=== PATIENT | female | born 1970 | race Caucasian/White ===

== ENCOUNTER 2016-08-15 08:34 | Inpatient (IN) | payer BC ==
--- NOTE | ~2016-08-15 | DS ---
Unit #: [id number] #: [id number] Patient: MENDY GARCIA [id number] [address] [place], [place] [address] [id number] MR#: [id number] NAME: MENDY GARCIA ROOM: [facility] Age: 46 Sex: F Admission Date: 08/15/2016 : 1970 Discharge Date: 08/18/2016 Attending Physician: Rolf Gore M.D. Primary Care Physician: Yoselyn Diop P.A.-C.. 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 PROCEDURES IN THE HOSPITAL Revision of the femoral component with lateral release and poly exchange. HOSPITAL COURSE The patient was admitted on 08/15 and underwent the above procedure. Postoperatively, she is recovering appropriately. She has had difficulty with anxiety and pain control. She will be on Percocet on a scheduled basis, along with her OxyContin on a scheduled basis at the time of discharge. Her INR is 2.4. She will be on Coumadin at the time of discharge. Her dose will be 2 mg a day. We will check her ProTimes on Monday and Monday and adjust her dose appropriately. Her sherrie will be removed 2 weeks postop. She is weightbearing as tolerated. Her medications are her routine home medicines plus her pain medicine. Dictated by... Nils Bukcner/nicolas TD: 08/18/2016 08:07 JOB #: [id number] DISCHARGE SUMMARY Page 1 of 1 X Rolf Gore MD DISCHARGE SUMMARY
--- NOTE | ~2016-08-15 | BMI ---
[facility] Nutrition Therapy DATE: 08/16/16 Patient: MENDY GARCIA Physician: PAOLA Address: [address] [place] [address] Room/Bed: [address] [place] [address], Zip: [place] [address] Admit Date: 08/15/16 Date of : [birth year] Height: 5 4 Weight: 272 123.5 HIGH BMI NOTE: DX: 46 yo female admitted for lateral patellar tilt ANTHROPOMETRICS: Ht: 5'4" Wt: 123.6 kg (272#) BMI: 46.8 INTERVENTION: 1. Regular diet RECOMMENDATIONS: 1. Please add Heart Healthy diet restriction to promote gradual weight loss towards healthy BMI (19.0-25.0) or +/-10%IBW. RD will f/u per protocol. Respectfully, Afsaneh Bell, Regional Vice President Surgical Sales Zainab Hanna MS, RD, LD [facility] cc: client file
--- NOTE | ~2016-08-15 | OR ---
Unit #: [id number] #: [id number] Patient: MENDY GARCIA [id number] [address] [place], [place] [address] [id number] MR#: [id number] NAME: MENDY GARCIA ROOM: [facility] Date of Procedure: 08/15/2016 Admission Date: 08/15/2016 Surgeon: Rolf Gore M.D. : 1970 Attending Physician: Rolf Gore M.D. Primary Care Physician: Yoselyn Diop P.A.-C.. OPERATIVE REPORT PREOPERATIVE DIAGNOSIS Patellar subluxation, left total knee. PROCEDURE PERFORMED Revision of femoral component and tibial insert with lateral release, left knee. ASSISTANTS Tayler Diop and Matt Devine. ANESTHESIA General with adductor canal block. DESCRIPTION OF PROCEDURE The patient was brought to the operating room and given 3 g of Ancef. This will be continued postop, but discontinued within 23 hours from the start time of surgery. She was then given an adductor canal block, brought back to the operating room, given a general anesthetic. Tourniquet placed around the left thigh. The left leg was prepped and draped in a sterile fashion. The previous skin sherrie were removed. The knee was then prepped and draped. The tourniquet was inflated to 300. The previous skin incision was opened. The subcutaneous dissected away. The fascial repair and arthrotomy from her surgery had dehisced. The patella was subluxed laterally. We inspected the knee. The tibial component was in the appropriate position, but she complained of too much valgus alignment. The intramedullary cutting guide was applied and the cut had been at 6 degrees of valgus previously, but because the size of her leg and her complaints of valgus alignment, the femur was then recut at 3 degrees of valgus. The chamfer cuts were recut. Trial femur applied and we went to a 12.5 insert from a 10 insert and the knee alignment appeared to be appropriate and the knee was quite stable. We then performed a lateral release and the patella tracked properly. So, we opened a new 4N cruciate retaining femur. The knee was irrigated and dried and this component was cemented into place. We then positioned a 12.5 rotating platform, cruciate retaining tibial component. Once again, stability was appropriate. The ropivacaine mixture was injected in and around the knee. The tourniquet was released. Hemostasis was obtained and then the wound was closed using 0 Ethibond in the arthrotomy. After the arthrotomy was repaired, the knee was taken through range of motion. The patella tracked properly. The tourniquet was released. Hemostasis was obtained. After the arthrotomy was repaired and the patella tracked properly, the subcu was closed with 0 and 2-0 Vicryl and sherrie in the Unit #: [id number] #: [id number] Patient: MENDY GARCIA skin. Sterile dressing applied and her general anesthetic was reversed. Dictated by... Nils Buckner/verito TD: 08/16/2016 03:04 JOB #: [id number] OPERATIVE REPORT Page 1 of 1 X Rolf Gore MD X PROCEDURE OPERATIVE NOTE
[~2016-08-15 08:34] MED LIST: ASPIRIN EC81 M1 PO; ATARAX PO; BYSTOLIC5 MG PO; EXFORGE 10-3201 EACH PO; LIPITOR40 MG PO; MULTI-DAY VITA1 EACH PO; PERCOCET10 PO; TIROSINT50 MCG PO; VITAMIN D-32000 UNI2 PO; ZOLOFT100 MG PO
[2016-08-15] MEDS ORDERED: OXYCONTIN 20MG20 M1 PO (09:10)
[2016-08-15 09:44] LABS: BASOPHIL# 0.1 X10e3 (0-0.3); BASOPHIL% 0.9 % (0-2.5); DIFF IND NO; EOSINOPHIL# 0.3 X10e3 (0-0.7); EOSINOPHIL% 2.5 % (0.0-7.0); HEMATOCRIT 35.4 % (35.0-45.0); HEMOGLOBIN 11.4 gm/dL (12.0-16.0); LYMPHOCYTE# 1.8 X10e3 (1.0-3.5); LYMPHOCYTE% 15.5 % (17.0-45.0); MEAN CELL VOLUME 88.8 FL (83-96); MEAN CORPUSCULAR HEMOGLOBIN 28.6 PG (28-34); MEAN CORPUSCULAR HGB CONC 32.2 g/dL (30-36); MEAN PLATELET VOLUME 6.7 FL (6.5-11.5); MONOCYTE# 0.8 X10e3 (0-1.0); MONOCYTE% 7.2 % (3.0-12.0); NEUTROPHIL# 8.5 X10e3 (1.5-7.1); NEUTROPHIL% 73.9 % (40-75); PLATELET COUNT 511 X10e3 (140-420); RED BLOOD COUNT 3.99 X10e (3.90-5.30); RED CELL DISTRIBUTION WIDTH 18.8 % (11.0-15.5); WHITE BLOOD COUNT 11.5 X10e3 (4.0-10.5)
[2016-08-15 09:53] LABS: PROTHROMBIN TIME (PATIENT) 10.7 SECONDS (9.6-11.5)
[2016-08-15 10:10] LABS: BUN/CREATININE RATIO 17.14; CALCIUM SERUM 9.6 mg/dL (8.4-10.2); CREATININE SERUM 0.7 mg/dL (0.6-1.4); GLOM FILT RATE Estimated 103.9 mL/min (>60); POTASSIUM 4.4 mmol/L (3.5-5.1)
[2016-08-15 10:33] LABS: URINE APPEARANCE CLEAR; URINE BILIRUBIN NEG (NEG); URINE BLOOD NEG (NEG); URINE COLOR DK YELLOW; URINE GLUCOSE NEG (NEG); URINE KETONE TRACE (NEG); URINE LEUKOCYTE ESTERASE NEG (NEG); URINE NITRATE NEG (NEG); URINE PH 5.5 (5-8); URINE PROTEIN NEG (NEG); URINE SPECIFIC GRAVITY 1.035 (1.003-1.035)
[2016-08-15 10:36] LABS: CULTURE INDICATED? NO
[2016-08-16 02:51] LABS: BASOPHIL% 0.2 % (0-2.5); HEMATOCRIT 29.4 % (35.0-45.0); LYMPHOCYTE# 0.7 X10e3 (1.0-3.5); LYMPHOCYTE% 5.2 % (17.0-45.0); MEAN CELL VOLUME 88.8 FL (83-96); MEAN CORPUSCULAR HEMOGLOBIN 28.5 PG (28-34); MEAN CORPUSCULAR HGB CONC 32.1 g/dL (30-36); MEAN PLATELET VOLUME 6.8 FL (6.5-11.5); MONOCYTE# 0.4 X10e3 (0-1.0); MONOCYTE% 2.8 % (3.0-12.0); NEUTROPHIL# 12.4 X10e3 (1.5-7.1); NEUTROPHIL% 91.8 % (40-75); PLATELET COUNT 451 X10e3 (140-420); RED BLOOD COUNT 3.31 X10e (3.90-5.30); RED CELL DISTRIBUTION WIDTH 17.8 % (11.0-15.5); WHITE BLOOD COUNT 13.5 X10e3 (4.0-10.5)
[2016-08-16 02:54] LABS: DIFF IND NO; HEMOGLOBIN 9.4 gm/dL (12.0-16.0)
[2016-08-16 03:05] LABS: INR 1.8
[2016-08-17 03:38] LABS: BASOPHIL% 0.4 % (0-2.5); EOSINOPHIL% 0.3 % (0.0-7.0); LYMPHOCYTE# 0.9 X10e3 (1.0-3.5); LYMPHOCYTE% 6.9 % (17.0-45.0); MEAN CORPUSCULAR HEMOGLOBIN 28.5 PG (28-34); MEAN PLATELET VOLUME 6.6 FL (6.5-11.5); MONOCYTE# 0.5 X10e3 (0-1.0); MONOCYTE% 3.7 % (3.0-12.0); NEUTROPHIL# 11.4 X10e3 (1.5-7.1); NEUTROPHIL% 88.7 % (40-75); PLATELET COUNT 385 X10e3 (140-420); RED BLOOD COUNT 3.15 X10e (3.90-5.30); WHITE BLOOD COUNT 12.8 X10e3 (4.0-10.5)
[2016-08-17 03:41] LABS: DIFF IND NO
[2016-08-17 03:52] LABS: INR 3.2
[2016-08-17 03:55] LABS: PROTHROMBIN TIME (PATIENT) 34.7 SECONDS (9.6-11.5)
[2016-08-18 03:10] LABS: BASOPHIL# 0.1 X10e3 (0-0.3); DIFF IND NO; EOSINOPHIL# 0.1 X10e3 (0-0.7); HEMATOCRIT 24.7 % (35.0-45.0); LYMPHOCYTE# 2.8 X10e3 (1.0-3.5); LYMPHOCYTE% 23.8 % (17.0-45.0); MEAN CELL VOLUME 89.1 FL (83-96); MEAN CORPUSCULAR HEMOGLOBIN 28.8 PG (28-34); MEAN CORPUSCULAR HGB CONC 32.3 g/dL (30-36); MEAN PLATELET VOLUME 6.7 FL (6.5-11.5); MONOCYTE% 8.3 % (3.0-12.0); NEUTROPHIL# 7.7 X10e3 (1.5-7.1); NEUTROPHIL% 65.9 % (40-75); PLATELET COUNT 343 X10e3 (140-420); RED BLOOD COUNT 2.77 X10e (3.90-5.30); RED CELL DISTRIBUTION WIDTH 18.1 % (11.0-15.5); WHITE BLOOD COUNT 11.7 X10e3 (4.0-10.5)
[2016-08-18 03:22] LABS: INR 2.4; PROTHROMBIN TIME (PATIENT) 25.6 SECONDS (9.6-11.5)
[2016-08-18 09:32] LABS: BUN/CREATININE RATIO 21.66; CALCIUM SERUM 8.7 mg/dL (8.4-10.2); CREATININE SERUM 0.6 mg/dL (0.6-1.4); GLOM FILT RATE Estimated 109.3 mL/min (>60); POTASSIUM 3.9 mmol/L (3.5-5.1)
[2016-08-19 03:24] LABS: BASOPHIL# 0.1 X10e3 (0-0.3); BASOPHIL% 1.1 % (0-2.5); EOSINOPHIL# 0.3 X10e3 (0-0.7); EOSINOPHIL% 3.1 % (0.0-7.0); HEMATOCRIT 26.5 % (35.0-45.0); HEMOGLOBIN 8.4 gm/dL (12.0-16.0); LYMPHOCYTE# 2.3 X10e3 (1.0-3.5); LYMPHOCYTE% 24.1 % (17.0-45.0); MEAN CELL VOLUME 88.6 FL (83-96); MEAN CORPUSCULAR HGB CONC 31.6 g/dL (30-36); MEAN PLATELET VOLUME 6.7 FL (6.5-11.5); MONOCYTE# 0.8 X10e3 (0-1.0); MONOCYTE% 8.6 % (3.0-12.0); NEUTROPHIL# 5.9 X10e3 (1.5-7.1); NEUTROPHIL% 63.1 % (40-75); PLATELET COUNT 372 X10e3 (140-420); RED BLOOD COUNT 2.99 X10e (3.90-5.30); RED CELL DISTRIBUTION WIDTH 18.1 % (11.0-15.5); WHITE BLOOD COUNT 9.4 X10e3 (4.0-10.5)
[2016-08-19 03:25] LABS: DIFF IND NO
[2016-08-19 03:36] LABS: INR 1.8; PROTHROMBIN TIME (PATIENT) 19.6 SECONDS (9.6-11.5)
== END 2016-08-19 13:30 | DRG 467 ==
LOC: CSUR 08:34 → CPACUOF 12:00 → C4B 17:16
PROVIDERS: Orthopaedic Surgery; Physician Assistant
PROC: 0SRU0J9 Replacement of Left Knee Joint, Femoral Surface with Synthetic Substitute, Cemented, Open Approach (ICD-10-PCS; 2016-08-15)
PROC: 0SPD09Z Removal of Liner from Left Knee Joint, Open Approach (ICD-10-PCS; 2016-08-15)
PROC: 0SUW09Z Supplement Left Knee Joint, Tibial Surface with Liner, Open Approach (ICD-10-PCS; 2016-08-15)
PROC: 0SPU0JZ Removal of Synthetic Substitute from Left Knee Joint, Femoral Surface, Open Approach (ICD-10-PCS; principal; 2016-08-15 11:00)
DX: T84.023A Instability of internal left knee prosthesis, initial encounter (principal); T81.32XA Disruption of internal operation (surgical) wound, not elsewhere classified, initial encounter; Z68.42 Body mass index [BMI] 45.0-49.9, adult; F41.9 Anxiety disorder, unspecified; F32.9 Major depressive disorder, single episode, unspecified; E03.9 Hypothyroidism, unspecified; K21.9 Gastro-esophageal reflux disease without esophagitis; Z87.442 Personal history of urinary calculi; I10 Essential (primary) hypertension; E78.5 Hyperlipidemia, unspecified; Z98.84 Bariatric surgery status; Z82.49 Family history of ischemic heart disease and other diseases of the circulatory system; E66.01 Morbid (severe) obesity due to excess calories
CPT/HCPCS: 80048; 81003; 84703; 85025; 85610; 86850; 86900; 86901; 87070; 94760; 97110; 97116; 97163; 97165; 97530; 97535; C1776; J0131; J0171; J0690; J0735; J1100; J1170; J1650; J1885; J2250; J2405; J2795; J3010